=== PATIENT | male | born 1980 | race Caucasian/White ===

== ENCOUNTER → 2021-10-18 08:50 | Outpatient (CLI) | payer OTHER, SELFPAY ==
--- NOTE | ~2021-10-18 | MR_ITS ---
EXAMINATION: MR knee RT wo con DATE: 10/18/2021 09:29 INDICATION: Right knee pain. Loose body in right knee. Chondromalacia of patella. TECHNIQUE: Magnetic resonance imaging (MRI) of the right knee was performed without intravenous contr ast. Sequences included axial PD-weighted FS FSE, coronal PD-weighted FSE and PD-weighted FS FSE, sag ittal PD-weighted FSE, and sagittal T2-weighted FS FSE. COMPARISON: None. FINDINGS: Medial compartment: Medial meniscus is normal. Tibial cartilage is normal. There is shallow partial-thickness cartilage l oss of femoral condyle, worst at the central and lateral articular surface. Osteophytes are noted. Lateral compartment: There is a horizontal undersurface tear involving anterior horn and body of lateral meniscus. There a re paralabral cysts extending from the labral posteroinferiorly to the tip of the fibula and superoan teriorly to between the iliotibial band and lateral femoral condyle. There is cartilage surface irreg ularity of tibial condyle. There is shallow partial-thickness cartilage loss of femoral condyle invol ving the central and posterior articular surface. Osteophytes are noted. Patellofemoral compartment: There is a partial thickness cartilage loss of patellar lateral facet with small subchondral cysts an d mild subchondral edema-like marrow signal intensity. There is deep partial thickness cartilage loss of medial trochlea. Osteophytes are noted. Ligaments and tendons: The anterior and posterior cruciate ligaments are normal. Medial collateral ligament and fibular roman ateral ligament are normal. There is thickening and increased signal in the iliotibial band near its is distal attachment. There is mild patellar tendinopathy. Fluid: There is a small knee joint effusion. There is mild prepatellar and superficial infrapatellar bursiti s. IMPRESSION: 1. Moderate chondrosis of patellofemoral compartment and mild chondrosis of medial and lateral compar tments. 2. Tear of lateral meniscus with large network of paralabral cysts. 3. Small knee joint effusion. Reviewed, dictated and finalized at location A. IMPRESSION: 1. Moderate chondrosis of patellofemoral compartment and mild chondrosis of med ial and lateral compartments. 2. Tear of lateral meniscus with large network of paralabral cysts. 3. Small knee joint effusion.
== END ==
PROVIDERS: Visit Provider Physician Assistant
DX: M23.41 Loose body in knee, right knee (principal); M22.41 Chondromalacia patellae, right knee; M22.2X1 Patellofemoral disorders, right knee; S83.206A Unspecified tear of unspecified meniscus, current injury, right knee, initial encounter; M25.461 Effusion, right knee
CPT/HCPCS: 73721

== ENCOUNTER 2023-08-21 12:53 | Outpatient (CLI) | payer OTHER, SELFPAY ==
--- NOTE | ~2023-08-21 | XR_ITS ---
XR hand RT 2V DATE: 08/21/2023 13:12 INDICATION: Hand and wrist injury TECHNIQUE: AP and lateral views of right hand COMPARISON: None FINDINGS: Possible 1.7 x 4 mm loose body or spur overlying lateral aspect of the radionavicular joint . Right wrist 4 view radiographic examination is recommended. No fracture or dislocation, periosteal reaction or bone destruction is detected. 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 RENTAL SUPERVISOR
== END 2023-08-21 12:54 ==
PROVIDERS: PCP Nurse Practitioner Family; Visit Provider Nurse Practitioner Family
DX: M24.031 Loose body in right wrist (principal); M19.041 Primary osteoarthritis, right hand; S69.91XA Unspecified injury of right wrist, hand and finger(s), initial encounter; X58.XXXA Exposure to other specified factors, initial encounter
CPT/HCPCS: 73120

== ENCOUNTER → 2023-08-22 10:53 | Outpatient (CLI) | payer OTHER, SELFPAY ==
--- NOTE | ~2023-08-22 | XR_ITS ---
Right wrist Technique: PA, oblique, lateral, and ulnar deviation views were obtained. Clinical History: Injury Findings: No acute fracture or dislocation is seen. Osseous alignment is anatomic. Joint spaces are p reserved. Soft tissues are unremarkable. Impression: Unremarkable right wrist radiographs. Reviewed, dictated and finalized at location . 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
== END ==
PROVIDERS: PCP Nurse Practitioner Family; Visit Provider Nurse Practitioner Family
DX: S69.91XA Unspecified injury of right wrist, hand and finger(s), initial encounter (principal)
CPT/HCPCS: 73110

== ENCOUNTER 2023-10-30 08:00 | Outpatient (CLI) | payer OTHER, SELFPAY ==
[2023-10-30 19:53] LABS: Basophils Percent Auto 0.5 % (0.2-1.2); Eosinophils Absolute Auto 0.1 K/mm3 (0-0.3); Eosinophils Percent Auto 3.3 % (0-4.4); Hematocrit 44.2 % (42.0-52.0); Hemoglobin 14.5 g/dL (14.0-18.0); Immature Granulocyte Absolute 0.01 K/mm3 (0.00-0.031); Immature Granulocyte Percent A 0.2 % (0-0.5); Lymphocytes Absolute Auto 1.65 K/mm3 (0.9-3.2); Lymphocytes Percent Auto 38.6 % (18.3-44.2); Mean Corpuscular HGB Conc 32.8 g/dl (32-36); Mean Corpuscular Hemoglobin 31.7 pg (26-34); Mean Corpuscular Volume 96.7 fl (80-100); Mean Platelet Volume 11.2 fl (7.4-10.4); Monocytes Absolute Auto 0.4 K/mm3 (0.1-0.6); Monocytes Percent Auto 9.8 % (2.6-8.5); Neutrophils Percent Auto 47.6 % (45.5-73.1); Platelet Count Result 129 k/mm3 (150-375); Red Blood Count 4.57 M/mm3 (4.6-6.20); Red Cell Distribution Width 11.9 % (11.5-14.5); White Blood Count 4.3 K/mm3 (4.5-10.0)
[2023-10-30 20:21] LABS: Alanine Aminotransferase 30 U/L (6-50); Alkaline Phosphatase 61 U/L (38-126); Anion Gap 7 mmol/L (4-12); Aspartate Amino Transferase 41 U/L (17-59); Blood Urea Nitrogen 19 mg/dL (9-20); Calcium 9.9 mg/dL (8.4-10.2); Carbon Dioxide 31 mmol/L (22-30); Chloride 100 mmol/L (98-107); Cholesterol 225 mg/dL (0-200); Estimated Glomerular Filt Rate > 60; Glucose 105 mg/dL (65-110); HDL Direct 45 mg/dL; Potassium 4.6 mmol/L (3.4-5.0); Sodium 138 mmol/L (137-145); Triglycerides 244 mg/dL (<150)
[2023-10-30 20:35] LABS: LDL Cholesterol Direct 123 mg/dL
[2023-10-30 20:44] LABS: Vitamin D 25 Hydroxy 33.9 ng/mL
[2023-10-30 20:52] LABS: Prostate Specific Antigen 0.3 ng/mL (< OR = 4.0)
== END 2023-10-30 08:01 | disposition home or self-care (01) ==
LOC: ANHGOSHLAB 08:01
PROVIDERS: PCP Family Medicine; Visit Provider Family Medicine
DX: Z00.00 Encounter for general adult medical examination without abnormal findings (principal); E78.5 Hyperlipidemia, unspecified; E55.9 Vitamin D deficiency, unspecified; Z13.29 Encounter for screening for other suspected endocrine disorder; Z12.5 Encounter for screening for malignant neoplasm of prostate; Z80.42 Family history of malignant neoplasm of prostate; Z79.899 Other long term (current) drug therapy; E53.8 Deficiency of other specified B group vitamins
CPT/HCPCS: 36415; 80053; 80061; 82306; 82607; 84153; 84443; 85025; G0103